=== PATIENT | male | born 1955 | race Caucasian/White ===

== ENCOUNTER 2017-12-12 00:03 | Observation (INO) ==
--- NOTE | 2017-12-12 00:59 | ED ---
HPI General Chief Complaint: Abdominal Pain Stated Complaint: Upper Abd pain x 4 days Time Seen by Provider: 12/12/17 00:29 History of Present Illness HPI narrative: 62-year-old male presents to the emergency department for complaint of radiating into his back following fatty meals intermittently since Thursday. Presently pain is 0. Patient has history of hypertension dyslipidemia and diabetes. Patient is concerned that he is having gallbladder related pain. Patient has had increased fatty meals over the past week as he has been on medication. Symptoms seem to worsen with fatty foods. Patient is unable to identify alleviating factors. No history of abdominal surgeries. Small umbilical hernia that reduces. Related Data Home Medications Medication Instructions Recorded Confirmed amlodipine 10 mg PO DAILY 12/12/17 12/12/17 aspirin [Aspir-Low] 81 mg PO DAILY 12/12/17 12/12/17 ezetimibe 10 mg PO DAILY 12/12/17 12/12/17 losartan 100 mg PO DAILY 12/12/17 12/12/17 metformin 1,500 mg PO DAILY 12/12/17 12/12/17 metformin 500 mg PO BID 12/12/17 12/12/17 metoprolol ta-hydrochlorothiaz 1 tab PO DAILY 12/12/17 12/12/17 Allergies Allergy/AdvReac Type Severity Reaction Status Date / Time No Known Allergies Allergy Mild Uncoded 08/09/05 12:24 Review of Systems Except as stated in HPI: all other systems reviewed are negative [facility] Medical History Medical History History of diabetes mellitus (Acute) History of hypertension (Acute) Hx of gout (Acute) Social History Social History Substance History: Active Abuse Second Hand Smoke Exposure: No Smoking Status: Former smoker How Often Do You Have a Drink Containing Alcohol: Never Recent Travel in [facility] within the Last 8 Weeks: No Recent Out of Country Travel within the Last 8 Weeks: No Exam Narrative Exam Narrative: GENERAL: Well-nourished, well-developed patient. SKIN: Focused skin assessment warm/dry. HEAD: Normocephalic. EYES: No scleral icterus. No injection or drainage. NECK: Supple, trachea midline. No JVD or lymphadenopathy. CARDIOVASCULAR: Regular rate and rhythm without murmurs, gallops, or rubs. Radial dorsalis pedis pulses 2+ to palpation bilaterally. RESPIRATORY: Breath sounds equal bilaterally. No accessory muscle use. GASTROINTESTINAL: Abdomen soft, non-tender, nondistended. Soft nontender no clinical Herring sign no guarding or rebound MUSCULOSKELETAL: No cyanosis, or edema. BACK: Nontender without obvious deformity. No CVA tenderness. Course Initial Documented Vital Signs Temperature 97.3 F L 12/12/17 00:07 Pulse Rate 71 12/12/17 00:07 Blood Pressure 216/88 H 12/12/17 00:07 Pulse Oximetry 98 12/12/17 00:07 Last Documented Vital Signs Temperature 97.3 F L 12/12/17 00:07 Pulse Rate 68 12/12/17 03:02 Respiratory Rate 20 12/12/17 01:00 Blood Pressure 155/72 H 12/12/17 03:02 Pulse Oximetry 99 12/12/17 03:02 Medical Decision Making MDM Narrative Medical decision making narrative: 62-year-old male with intermittent chest pain associated with fatty meals Thursday and Thursday presents for evaluation with known history of hypertension dyslipidemia diabetes and family history of gallbladder disease. IV access obtained specimens collected and sent for resulting patient placed on cardiac surgeon with continuous pulse oximetry EKG performed shows sinus rhythm no acute injury pattern or ectopy noted. Labs EKG and imaging study resulted values found to be grossly in normal range except for mild elevation of BUN 26 and glucose of 122; ultrasound is negative for acute changes regarding the Gallbladder LFTs and lipase are grossly within normal range Cardiac enzymes are found to be in normal range and EKG is sinus rhythm with no acute abnormality. Patient's pain is 0/10 intensity patient has received aspirin 162 mg chewed and patient is aware of recommendation for observation admission for chest pain center protocol in view of his cardiac risk factor profile including male age 62 with hypertension dyslipidemia and diabetes. Patient is agreeable to observation admission. Discussed with Dr Tolbert for obs admission Differential Diagnosis Differential Diagnosis: Abdominal pain cholecystitis biliary colic pancreatitis peptic ulcer disease gastritis esophageal spasm [facility] Medical records reviewed: Yes I reviewed the patient's medical records. Lab Data Result diagrams: 12/12/17 00:50 12/12/17 00:50 Lab Results 12/12/17 12/12/17 12/12/17 Range/Units 00:50 00:50 00:50 CBC w Diff Auto diff final WBC 7.0 (4.0-11.0) th/mm3 RBC 4.43 L (4.50-5.90) mil/mm3 Hgb 13.6 (13.0-17.0) gm/dL Hct 41.1 (39.0-51.0) % MCV 92.9 (80.0-100.0) fL MCH 30.8 (27.0-34.0) pg MCHC 33.2 (32.0-36.0) % RDW 12.4 (11.6-17.2) % Plt Count 260 (150-450) th/mm3 MPV 8.4 (7.0-11.0) fL Neut % (Auto) 60.5 (16.0-70.0) % Lymph % (Auto) 28.4 (9.0-44.0) % [place] % (Auto) 7.8 (0.0-8.0) % Eos % (Auto) 1.2 (0.0-4.0) % Baso % (Auto) 2.1 H (0.0-2.0) % Neut # (Auto) 4.3 (1.8-7.7) th/mm3 Lymph # (Auto) 2.0 (1.0-4.8) th/mm3 [place] # (Auto) 0.5 (0.0-0.9) th/mm3 Eos # (Auto) 0.1 (0.0-0.4) th/mm3 Baso # (Auto) 0.1 (0.0-0.2) th/mm3 WBC Differential . Differential Comment . PT 10.4 (9.8-11.6) sec INR 1.0 Ratio APTT 25.2 (24.3-30.1) sec Sodium (136-145) meq/L Potassium (3.5-5.1) meq/L Chloride (98-107) meq/L Carbon Dioxide (21.0-32.0) meq/L Anion Gap (5-15) meq/L BUN (7-18) mg/dL Creatinine (0.60-1.30) mg/dL Estimated GFR (>89) mL/min Random Glucose (74-106) mg/dL Calcium (8.5-10.1) mg/dL Total Bilirubin (0.2-1.0) mg/dL AST (15-37) U/L ALT (12-78) U/L Alkaline Phosphatase (45-117) U/L Total Creatine Kinase 107 (39-308) U/L CK-MB (CK-2) 1.3 (0.5-3.6) ng/mL Troponin I Less than 0.02 L (0.02-0.05) ng/mL Total Protein (6.4-8.2) g/dL Albumin (3.4-5.0) g/dL Lipase (73-393) U/L Urine Color (Yellw/Straw) Urine Clarity (Clear) Urine pH (5.0-8.5) Ur Specific [place] (1.002-1.035) Urine Protein (Neg-Trace) mg/dL Urine Glucose (UA) (Negative) mg/dL Urine Ketones (Negative) mg/dL Urine Occult Blood (Negative) Urine Nitrate (Negative) Urine Bilirubin (Negative) Urine Urobilinogen (Less than 2) mg/dL Ur Leukocyte Esterase (Negative) Ur Squamous Epith Cells (0-5) /hpf Micro UA Comment Urine Culture Comments 12/12/17 12/12/17 Range/Units 00:50 01:00 CBC w Diff WBC (4.0-11.0) th/mm3 RBC (4.50-5.90) mil/mm3 Hgb (13.0-17.0) gm/dL Hct (39.0-51.0) % MCV (80.0-100.0) fL MCH (27.0-34.0) pg MCHC (32.0-36.0) % RDW (11.6-17.2) % Plt Count (150-450) th/mm3 MPV (7.0-11.0) fL Neut % (Auto) (16.0-70.0) % Lymph % (Auto) (9.0-44.0) % [place] % (Auto) (0.0-8.0) % Eos % (Auto) (0.0-4.0) % Baso % (Auto) (0.0-2.0) % Neut # (Auto) (1.8-7.7) th/mm3 Lymph # (Auto) (1.0-4.8) th/mm3 [place] # (Auto) (0.0-0.9) th/mm3 Eos # (Auto) (0.0-0.4) th/mm3 Baso # (Auto) (0.0-0.2) th/mm3 WBC Differential Differential Comment PT (9.8-11.6) sec INR Ratio APTT (24.3-30.1) sec Sodium 139 (136-145) meq/L Potassium 4.3 (3.5-5.1) meq/L Chloride 107 (98-107) meq/L Carbon Dioxide 23.4 (21.0-32.0) meq/L Anion Gap 9 (5-15) meq/L BUN 26 H (7-18) mg/dL Creatinine 0.99 (0.60-1.30) mg/dL Estimated GFR 76 L (>89) mL/min Random Glucose 122 H (74-106) mg/dL Calcium 9.1 (8.5-10.1) mg/dL Total Bilirubin 0.5 (0.2-1.0) mg/dL AST 18 (15-37) U/L ALT 25 (12-78) U/L Alkaline Phosphatase 74 (45-117) U/L Total Creatine Kinase (39-308) U/L CK-MB (CK-2) (0.5-3.6) ng/mL Troponin I (0.02-0.05) ng/mL Total Protein 7.4 (6.4-8.2) g/dL Albumin 4.2 (3.4-5.0) g/dL Lipase 297 (73-393) U/L Urine Color Yellow (Yellw/Straw) Urine Clarity Clear (Clear) Urine pH 6.0 (5.0-8.5) Ur Specific [place] Less/equal 1.005 (1.002-1.035) Urine Protein Negative (Neg-Trace) mg/dL Urine Glucose (UA) Negative (Negative) mg/dL Urine Ketones Negative (Negative) mg/dL Urine Occult Blood Negative (Negative) Urine Nitrate Negative (Negative) Urine Bilirubin Negative (Negative) Urine Urobilinogen 0.2 (Less than 2) mg/dL Ur Leukocyte Esterase Negative (Negative) Ur Squamous Epith Cells 0-5 (0-5) /hpf Micro UA Comment Culture not ind Urine Culture Comments Culture not ind Imaging Data Radiologist's impression: Chest X-Ray 12/12/17 00:37 CONCLUSION: Negative examination. Gallbladder Ultrasound 12/12/17 00:37 CONCLUSION: Unremarkable sonographic appearance of the right upper quadrant ECG Data EKG Prior to Arrival: No Attestation: I personally reviewed and interpreted this ECG as follows: Interpretation: EKG normal sinus rhythm rate 66 normal axis and intervals no acute ST elevation injury pattern or ectopy noted nonspecific artifact is present Discharge Plan Discharge Disposition Patient Disposition: 30 Still Patient Discharge Condition Condition: Stable Discharge Details Diagnosis: Chest pain, Gastritis Physicians Team ED Provider: Melisa Goldman Primary Care Provider: Agustín Jernigan Attending Provider: Ara Norris Status ED Status: Admitted Observation Patient
[2017-12-12 01:19] LABS: Chloride 107 meq/L (98-107); Potassium 4.3 meq/L (3.5-5.1); Sodium 139 meq/L (136-145)
[2017-12-12 01:21] LABS: Bilirubin,Urine Negative (Negative); Clarity,Urine Clear (Clear); Color,Urine Yellow (Yellw/Straw); Glucose,Urine (UA) Negative (Negative); Leukocyte Esterase,Urine Negative (Negative); Nitrite,Urine Negative (Negative); Specific Gravity,Urine Less/Equal 1.005 (1.002-1.035); Urobilinogen,Urine 0.2 mg/dL (Less than 2)
[2017-12-12 01:22] LABS: Albumin 4.2 g/dL (3.4-5.0)
[2017-12-12 01:23] LABS: Anion Gap 9 meq/L (5-15); Blood Urea Nitrogen 26 mg/dL (7-18); Calcium 9.1 mg/dL (8.5-10.1); Carbon Dioxide 23.4 meq/L (21.0-32.0); Glucose,Random 122 mg/dL (74-106); Lipase 297 U/L (73-393)
[2017-12-12 01:26] LABS: Alanine Aminotransferase 25 U/L (12-78); Aspartate Aminotransferase 18 U/L (15-37); Glomerular Filtration Rate 76 mL/min (>89)
[2017-12-12 01:28] LABS: Creatine Kinase 107 U/L (39-308); Total Protein 7.4 g/dL (6.4-8.2)
[2017-12-12 01:29] LABS: Alkaline Phosphatase 74 U/L (45-117)
[2017-12-12 01:41] LABS: Creatine Kinase MB 1.3 ng/mL (0.5-3.6)
[2017-12-12 01:53] LABS: Activated Partial Thrombo Time 25.2 sec (24.3-30.1); Prothrombin Time 10.4 sec (9.8-11.6)
[2017-12-12 01:55] LABS: Baso # (Auto) 0.1 th/mm3 (0.0-0.2); Baso % (Auto) 2.1 % (0.0-2.0); Eos # (Auto) 0.1 th/mm3 (0.0-0.4); Eos % (Auto) 1.2 % (0.0-4.0); Hematocrit 41.1 % (39.0-51.0); Hemoglobin 13.6 gm/dL (13.0-17.0); Lymph % (Auto) 28.4 % (9.0-44.0); Mean Corpuscular HGB Conc 33.2 % (32.0-36.0); Mean Corpuscular Hemoglobin 30.8 pg (27.0-34.0); Mean Corpuscular Volume 92.9 fL (80.0-100.0); Mean Platelet Volume 8.4 fL (7.0-11.0); Mono # (Auto) 0.5 th/mm3 (0.0-0.9); Mono % (Auto) 7.8 % (0.0-8.0); Neut # (Auto) 4.3 th/mm3 (1.8-7.7); Neut % (Auto) 60.5 % (16.0-70.0); Platelet Count 260 th/mm3 (150-450); Red Blood Count 4.43 mil/mm3 (4.50-5.90); Red Cell Distribution Width 12.4 % (11.6-17.2)
--- NOTE | 2017-12-12 02:11 | US ---
EXAM DATE: 12/12/2017 1:32 AM EDT AGE/SEX: 62 years / Male INDICATIONS: Right upper quadrant pain. CLINICAL DATA: This is the patient's initial encounter. Patient reports that signs and/or symptoms h ave been present for 4 - 6 days and indicates a pain score of 8/10. MEDICAL/SURGICAL HISTORY: . Hypertension. Hypercholesterolemia. Type II diabetes. . Cardiac abla tion. COMPARISON: No prior exams available for comparison. MEASUREMENTS: Liver:__ 17.0 cm. Common Bile Duct:__ 4mm. FINDINGS: Liver: Normal echotexture without focal lesion or ductal dilatation. Portal Vein: Hepatopedal flow seen in portal vein. Common Duct: No intraluminal mass or stone visualized. Gallbladder: Demonstrates no wall thickening or pericholecystic fluid. No stones visualized. Pancreas: The visualized portions are within normal limits Right Kidney: Normal echotexture and cortical thickness. No mass or hydronephrosis. Other: None. CONCLUSION: Unremarkable sonographic appearance of the right upper quadrant Electronically signed by: Tony Gutiérrez MD 12/12/2017 2:10 AM EDT
--- NOTE | 2017-12-12 02:13 | XR ---
EXAM DATE: 12/12/2017 1:42 AM EDT AGE/SEX: 62 years / Male INDICATIONS: Chest pain. CLINICAL DATA: This is the patient's initial encounter. Patient reports that signs and symptoms have been present for 1 day and indicates a pain score of 6/10. MEDICAL/SURGICAL HISTORY: None. None. COMPARISON: No prior exams available for comparison. FINDINGS: A single AP view of the chest demonstrates the lungs to be symmetrically aerated without evidence of mass, infiltrate or effusion. The cardiomediastinal contours are unremarkable. Osseous structures a re intact. CONCLUSION: Negative examination. Electronically signed by: Tony Gutiérrez MD 12/12/2017 2:12 AM EDT
[2017-12-12 02:16] LABS: Squamous Epithelial Cell,Urine 0-5 /hpf (0-5)
[2017-12-12 05:30] LABS: Creatine Kinase 88 U/L (39-308)
--- NOTE | 2017-12-12 08:40 | P.HP ---
History of Present Illness Primary Care Physician: Agustín Jernigan MD History of Present Illness: This is a pleasant 62-year-old male patient with a known medical history of diabetes, hypertension who presented to the ED with complaints of midepigastric pain/chest pain. Patient states that his symptoms started Thursday afternoon when returning home from his vacation, states he did eat some fatty foods and shortly after developed a midepigastric pain. He states that the pain subsided on its own and then returned late Thursday afternoon which led to his presentation to the hospital. Patient states that his pain is mid epigastric area, burning and sharp in nature, is worse when he eats, did admit to using antacids and dwbx-zsh-gonhqyn acid relief with no effect on his pain. Patient denies any recent fevers, chills, cough, shortness of breath, headache, dysuria. He does admit to diarrhea the past couple days. Patient states that he underwent a colonoscopy and EGD roughly 5 years ago which was reportedly negative. He does not follow with the vendor analyst frequently although did previously see Dr. Suazo. Patient does state that his symptoms felt like chest pain, was tight in nature radiated to his neck and lasted roughly 10 minutes and went away on its own. He states that this sensation has been happening intermittently over the past week. Denies ever having this type of sensation or pain before. 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 He did have surgery for this, had a stress test at that time and has been stable since. Has not had a stress test since that time. Patient followed with Dr. Iraheta for many years although with insurance change he is now seeing Dr. Bob. - Diagnosis (1) Chest pain (2) Gastritis Review of Systems All other systems reviewed negative except as stated in HPI PMFSH - History History Provided By: Patient - Medical History Medical History: Medical History (Last Updated 12/12/17 @ 10:50 by Paty Parks) History of CVA in adulthood History of diabetes mellitus History of hypertension Hx of gout Zvtnn-Bvvplzcsl-Ypirq syndrome - Tobacco History Second Hand Smoke Exposure: No Tobacco Use In Past 30 Days: No Smoking Status: Never smoker - Alcohol History How Often Do You Have a Drink Containing Alcohol: Never - Substance Use History Substance History: No History of Abuse - Substance Use Type Marijuana Status: Active Route Used: Inhalation Reason for Use: Calm Down - Travel History Recent Travel in the [place] Within the Last 8 Weeks: No Recent Travel Out of the Country Within the Last 8 Weeks: No - Immunization History Tetanus Immunization: <5 Years Hx Influenza Vaccine This Season: No Medications and Allergies Active Medications: Active Medications Aspirin (Aspirin) 325 mg PO DAILY [facility] Last Admin: 12/12/17 08:33 Dose: 325 mg Nitroglycerin (Nitrostat Sl) 0.4 mg SL Q5M PRN PRN Reason: CHEST PAIN Sodium Chloride (Ns Flush) 2 ml IV.FLUSH PRN PRN PRN Reason: FLUSH AFTER USING IV ACCESS Sodium Chloride (Ns Flush) 2 ml IV.FLUSH BID [facility] Last Admin: 12/12/17 08:33 Dose: 2 ml Sodium Chloride (Ns Flush) 2 ml IV.FLUSH PRN PRN PRN Reason: FLUSH AFTER USING IV ACCESS Allergies Allergy/AdvReac Type Severity Reaction Status Date / Time No Known Allergies Allergy Verified 12/12/17 04:41 Home Medications Medication Instructions Recorded Confirmed Type amlodipine 10 mg PO DAILY 12/12/17 12/12/17 History aspirin [Aspir-Low] 81 mg PO DAILY 12/12/17 12/12/17 History ezetimibe 10 mg PO DAILY 12/12/17 12/12/17 History losartan 100 mg PO DAILY 12/12/17 12/12/17 History metformin 1,500 mg PO DAILY 12/12/17 12/12/17 History metformin 500 mg PO BID 12/12/17 12/12/17 History metoprolol ta-hydrochlorothiaz 1 tab PO DAILY 12/12/17 12/12/17 History Exam Vital signs: Vital Signs 12/12/17 00:07 12/12/17 00:30 12/12/17 01:00 Temperature 97.3 F L Pulse Rate 71 71 85 Respiratory Rate 20 Blood Pressure 216/88 H 169/71 H Pulse Oximetry 98 98 99 12/12/17 03:02 12/12/17 04:05 12/12/17 05:30 Temperature 96.2 F L Pulse Rate 68 65 Respiratory Rate 20 Blood Pressure 155/72 H 167/81 H Pulse Oximetry 99 99 98 12/12/17 07:44 Temperature 97 F L Pulse Rate 59 L Respiratory Rate 20 Blood Pressure 167/72 H Pulse Oximetry 98 Intake & Output 12/11/17 12/12/17 12/12/17 18:59 06:59 18:59 Output Total 400 / 400 Balance -400 / -400 Weight 76.2 kg Output: Urine 400 / 400 Other: # Voids 1 Date of Last Bowel Movement 12/11/17 Narrative: GENERAL: Well-developed, well-nourished patient in [facility]. SKIN: Warm and dry. No rash. HEAD: Normocephalic. Atraumatic. EYES: Pupils equal and round. No scleral icterus. No injection or drainage. ENT: No nasal bleeding or discharge. Mucous membranes pink and moist. NECK: Supple. Trachea midline. CARDIOVASCULAR: Regular rate and rhythm. S1, S2 noted. No murmur appreciated. No chest pain on palpation. RESPIRATORY: No accessory muscle use. Clear to auscultation. Breath sounds equal bilaterally. GASTROINTESTINAL: Abdomen soft, non-tender, nondistended. Normoactive bowel sounds x4. MUSCULOSKELETAL: No obvious deformities. Extremities without clubbing, cyanosis , or edema. NEUROLOGICAL: Awake and alert. No obvious cranial nerve deficits. Motor grossly within normal limits. 5/5 muscle strength in bilateral upper and lower extremities. Normal speech. PSYCHIATRIC: Appropriate mood and affect; insight and judgment normal. Results - Labs CBC & Chem 7: 12/12/17 00:50 12/12/17 00:50 Labs: Laboratory Results - last 24 hr 12/12/17 12/12/17 12/12/17 00:50 00:50 00:50 CBC w Diff Auto diff final WBC 7.0 RBC 4.43 L Hgb 13.6 Hct 41.1 MCV 92.9 MCH 30.8 MCHC 33.2 RDW 12.4 Plt Count 260 MPV 8.4 Neut % (Auto) 60.5 Lymph % (Auto) 28.4 [place] % (Auto) 7.8 Eos % (Auto) 1.2 Baso % (Auto) 2.1 H Neut # (Auto) 4.3 Lymph # (Auto) 2.0 [place] # (Auto) 0.5 Eos # (Auto) 0.1 Baso # (Auto) 0.1 WBC Differential . Differential Comment . PT 10.4 INR 1.0 APTT 25.2 Sodium Potassium Chloride Carbon Dioxide Anion Gap BUN Creatinine Estimated GFR Random Glucose Calcium Total Bilirubin AST ALT Alkaline Phosphatase Total Creatine Kinase 107 CK-MB (CK-2) 1.3 Troponin I Less than 0.02 L Total Protein Albumin Lipase Urine Color Urine Clarity Urine pH Ur Specific [place] Urine Protein Urine Glucose (UA) Urine Ketones Urine Occult Blood Urine Nitrate Urine Bilirubin Urine Urobilinogen Ur Leukocyte Esterase Ur Squamous Epith Cells Micro UA Comment Urine Culture Comments 12/12/17 12/12/17 12/12/17 00:50 01:00 04:30 CBC w Diff WBC RBC Hgb Hct MCV MCH MCHC RDW Plt Count MPV Neut % (Auto) Lymph % (Auto) [place] % (Auto) Eos % (Auto) Baso % (Auto) Neut # (Auto) Lymph # (Auto) [place] # (Auto) Eos # (Auto) Baso # (Auto) WBC Differential Differential Comment PT INR APTT Sodium 139 Potassium 4.3 Chloride 107 Carbon Dioxide 23.4 Anion Gap 9 BUN 26 H Creatinine 0.99 Estimated GFR 76 L Random Glucose 122 H Calcium 9.1 Total Bilirubin 0.5 AST 18 ALT 25 Alkaline Phosphatase 74 Total Creatine Kinase 88 CK-MB (CK-2) Troponin I Less than 0.02 L Total Protein 7.4 Albumin 4.2 Lipase 297 Urine Color Yellow Urine Clarity Clear Urine pH 6.0 Ur Specific [place] Less/equal 1.005 Urine Protein Negative Urine Glucose (UA) Negative Urine Ketones Negative Urine Occult Blood Negative Urine Nitrate Negative Urine Bilirubin Negative Urine Urobilinogen 0.2 Ur Leukocyte Esterase Negative Ur Squamous Epith Cells 0-5 Micro UA Comment Culture not ind Urine Culture Comments Culture not ind - Imaging Impressions Chest X-Ray 12/12/17 00:37 CONCLUSION: Negative examination. Gallbladder Ultrasound 12/12/17 00:37 CONCLUSION: Unremarkable sonographic appearance of the right upper quadrant Caprini VTE Risk Assessment Caprini VTE Risk Assessment: Moderate/High Risk (score >= 2) Caprini Risk Assessment Model: Point Value = 1 Point Value = 2 Point Value = 3 Point Value = 5 Age 41-60 Minor surgery BMI > 25 kg/m2 Swollen legs Varicose veins or History of unexplained or recurrent spontaneous Oral contraceptives or hormone replacement Sepsis (< 1 month) Serious lung disease, including pneumonia (< 1 month) Abnormal pulmonary function Acute myocardial infarction Congestive heart failure (< 1 month) History of inflammatory bowel disease Medical patient at bed rest Age 61-74 Arthroscopic surgery Major open surgery (> 45 min) Laparoscopic surgery (> 45 min) Malignancy Confined to bed (> 72 hours) Immobilizing plaster cast Central venous access Age >= 75 History of VTE Family history of VTE Factor V Leiden Prothrombin [id number] Lupus anticoagulant Anticardiolipin antibodies Elevated serum homocysteine Heparin-induced thrombocytopenia Other congenital or acquired thrombophilia Stroke (< 1 month) Elective arthroplasty Hip, pelvis, or leg fracture Acute spinal cord injury (< 1 month) Prophylaxis Regimen: Total Risk Factor Score Risk Level Prophylaxis Regimen 0-1 Low Early ambulation 2 Moderate Order ONE of the following: *Sequential Compression Device (SCD) *Heparin 5000 units SQ BID 3-4 Higher Order ONE of the following medications: *Heparin 5000 units SQ TID *Enoxaparin/Lovenox 40 mg SQ daily (WT < 150 kg, CrCl > 30 mL/min) *Enoxaparin/Lovenox 30 mg SQ daily (WT < 150 kg, CrCl > 10-29 mL/min) *Enoxaparin/Lovenox 30 mg SQ BID (WT < 150 kg, CrCl > 30 mL/min) AND/OR *Sequential Compression Device (SCD) 5 or more Highest Order ONE of the following medications: *Heparin 5000 units SQ TID (Preferred with Epidurals) *Enoxaparin/Lovenox 40 mg SQ daily (WT < 150 kg, CrCl > 30 mL/min) *Enoxaparin/Lovenox 30 mg SQ daily (WT < 150 kg, CrCl > 10-29 mL/min) *Enoxaparin/Lovenox 30 mg SQ BID (WT < 150 kg, CrCl > 30 mL/min) AND *Sequential Compression Device (SCD) Assessment and Plan - Assessment (1) Chest pain Code(s): R07.9 - Chest pain, unspecified Status: Acute Plan: Patient has been admitted to the chest pain center for observation. Serial EKGs and serial troponins have been ordered for ruling out ACS purposes. Troponin trend flat. EKG reviewed showing no ST changes to indicate any ischemia. Chest pain has resolved at the time. Was given aspirin in ED. Nitroglycerin available as needed. Cardiac telemetry continued, no arrhythmias noted. Patient will undergo a myocardial perfusion scan to further rule out any ischemia. Patient is stable at this time and agreeable to the plan. Other hospitalization treatment plan will depend on nuclear imaging results. (2) Gastritis Code(s): K29.70 - Gastritis, unspecified, without bleeding Status: Acute Plan: Pain is mildly present. Add Maalox. Monitor response. (1) Chest pain Qualifiers: Chest pain type: unspecified Qualified Code(s): R07.9 - Chest pain, unspecified (2) Gastritis Qualifiers: Gastritis type: other gastritis Chronicity: unspecified Gastritis bleeding: without bleeding Qualified Code(s): K29.60 - Other gastritis without bleeding
[2017-12-12] MEDS ORDERED: Aspirin 325 MG Tablet PO SCH (09:00)
[2017-12-12] MEDS ORDERED: amLODIPine 10 MG Tablet PO SCH (09:00)
[2017-12-12] MEDS ORDERED: Ezetimibe 10 MG Tablet PO SCH (09:00)
[2017-12-12] MEDS ORDERED: Aluminum/Magnesium/Simethacone Susp 30 ML UDC PO ONE (11:00)
[2017-12-12] MEDS ORDERED: Diatrizoate Meglum/Diatrizoate Sod Liq 9 ML UDC PO ONE (12:15)
[2017-12-12] MEDS ORDERED: Regadenoson Inj 0.4 MG/5 ML Syringe IV.PUSH ONE (12:20)
--- NOTE | 2017-12-12 14:16 | NM ---
EXAM DATE: 12/12/2017 1:48 PM EDT AGE/SEX: 62 years / Male INDICATIONS:Angina. . Chest pain since Thursday. CLINICAL DATA: This is the patient's initial encounter. Patient reports that signs and symptoms have been present for 3 days and indicates a pain score of 0/10. MEDICAL/SURGICAL HISTORY: Diabetes mellitus type II. Hypertension. Mkxv-Hucxaqbpd-Ecuos syndro me. None. COMPARISON: No prior exams available for comparison. DOSE: 8.5 mCi Tc 99m Myoview at rest 27.3 mCi [id number] at stress 0.4 mg Lexiscan STRESS SYMPTOMS: Numbness and headache. EJECTION FRACTION: 63 % TECHNIQUE: The patient underwent pharmacologic stress with infusion of prescribed dose. Continuous ECG tracing was monitored during stress. Gated SPECT imaging was performed after stress and conventi onal SPECT imaging was performed at rest. The examination was performed on a SPECT/CT scanner, both attenuation and non-corrected datasets were reviewed. FINDINGS: Distribution: The maximum perfused segment at stress is in the lateral wall. Perfusion Study: The pattern of perfusion at stress is within normal limits. Gated Study: There are intact wall motion and wall thickening without hypokinetic or dyskinetic segm ents. The ejection fraction is calculated at 63%. RISK CATEGORY: Low (<1% Annual Motality Rate) CONCLUSION: Unremarkable myocardial perfusion scan. Electronically signed by: Jesus Guaman MD 12/12/2017 2:14 PM EDT
[2017-12-12 14:52] LABS: Chol/HDL Ratio 4.92 Ratio; HDL Cholesterol 33.7 mg/dL (40.0-60.0)
--- NOTE | 2017-12-14 12:25 | ECG ---
Date Performed: 12/12/2017 Time Performed: 04:22:21 PTAGE: 62 years EKG: Sinus rhythm MINIMAL VOLTAGE CRITERIA FOR LVH, CONSIDER NORMAL VARIANT BORDERLINE ECG PREVIOUS TRACING : 12/12/2017 00.54 DOCTOR: Arcelia Harris Interpretating Date/Time 12/14/2017 12:12:10
--- NOTE | 2017-12-14 12:26 | ECG ---
Date Performed: 12/12/2017 Time Performed: 00:54:58 PTAGE: 62 years EKG: Sinus rhythm NORMAL ECG PREVIOUS TRACING : 09/24/2012 11.21 DOCTOR: Arcelia Harris Interpretating Date/Time 12/14/2017 12:12:47
--- NOTE | 2017-12-14 17:47 | TR ---
Date Performed: 12/12/2017 Time Performed: 12:49:56 DOCTOR: Doc Vasquez DRUG LIST: CLINICAL HISTORY: REASON FOR TEST: REASON FOR ENDING: OBSERVATION: CONCLUSION: Lexiscan stress test was performed under standard four minute protocol. Radionuclide was injected one minute prior to ending the test. No electrocardiographic abormalities were present to suggest ischemia. Nuclear imaging and interpretation are pending. COMMENTS:
== END 2017-12-12 15:49 | disposition home or self-care (01) ==
LOC: PHEDA 00:03 → PH3 00:03 → PHED 00:03 → PH3 05:15
PROVIDERS: ADMIT Hospitalist; ATTEND Hospitalist
DX: K29.70 Gastritis, unspecified, without bleeding; I10 Essential (primary) hypertension; Z87.891 Personal history of nicotine dependence; Z79.84 Long term (current) use of oral hypoglycemic drugs; E78.5 Hyperlipidemia, unspecified; Z86.73 Personal history of transient ischemic attack (TIA), and cerebral infarction without residual deficits; E11.9 Type 2 diabetes mellitus without complications; Z79.899 Other long term (current) drug therapy; Z79.82 Long term (current) use of aspirin; R07.89 Other chest pain; K42.9 Umbilical hernia without obstruction or gangrene; I45.6 Pre-excitation syndrome